=== PATIENT | male | born 1940 | race Caucasian/White ===

== ENCOUNTER 2019-02-18 10:41 | Outpatient (CLI) | payer MEDICARE, BC ==
[2019-02-18 11:15] LABS: CALCIUM, SERUM 8.8 mg/dL (8.5-10.1); CREATININE 1.2 mg/dL (0.6-1.3); POTASSIUM 4.2 mmol/L (3.5-5.1)
[2019-02-18] MEDS ORDERED: CT SWABBABLE VALVE TRANS SET 1 EA INFUS.SET MC ONE (12:00)
[2019-02-18] MEDS ORDERED: IOHEXOL-350 100 ML VIAL IV ONE (12:00)
[2019-02-18] MEDS ORDERED: IV NS 0.9% 250 ML IV ONE (12:01)
== END 2019-02-18 23:50 | disposition home or self-care (01) ==
LOC: CT 10:41
PROVIDERS: ATTEND Internal Medicine Interventional Cardiology
DX: M48.07 Spinal stenosis, lumbosacral region (principal); M51.36 Other intervertebral disc degeneration, lumbar region; M51.26 Other intervertebral disc displacement, lumbar region; M12.88 Other specific arthropathies, not elsewhere classified, other specified site; M46.06 Spinal enthesopathy, lumbar region; M25.78 Osteophyte, vertebrae; I70.0 Atherosclerosis of aorta; K46.9 Unspecified abdominal hernia without obstruction or gangrene; R07.9 Chest pain, unspecified
CPT/HCPCS: 36415; 72131; 75574; 80048; J7050; Q9967

== ENCOUNTER 2021-01-21 08:09 | Outpatient (CLI) | payer MEDICARE, BC ==
[~2021-01-21] VITALS: Ht 177.8 cm; Wt 117.9 kg
--- NOTE | 2021-01-21 09:15 | NUR ---
CTA: Patient signed consent for CTA, patient verbalizes understanding.
[2021-01-21] MEDS ORDERED: IOHEXOL-350 100 ML VIAL IV ONE (09:18)
[2021-01-21] MEDS ORDERED: IV NS 0.9% 250 ML IV ONE (09:18)
[2021-01-21] MEDS ORDERED: CT SWABBABLE VALVE TRANS SET 1 EA INFUS.SET MC ONE (09:18)
[2021-01-21] MEDS ORDERED: NITROGLYCERIN 0.4 MG/TAB BOTTLE ONE (09:18)
[2021-01-21 09:25] VITALS: BP 143/68
[2021-01-21] MEDS ORDERED: NITROGLYCERIN 0.4 MG/TAB BOTTLE SL ONE (09:30)
[2021-01-21] MEDS ORDERED: METOPROLOL TARTRATE INJ 5 MG/5 ML AMPUL IVP PRN (09:30)
--- NOTE | 2021-01-21 09:34 | NUR ---
Post CTA; patient able to tolerate the procedure, and no distress noted. IV line Removed and cover with dry dressing, educated patient regarding post CTA the possible side effect of nitro and contrast patient verbalizes understanding. Patient left the Hospital in stable condition.
== END 2021-01-21 23:59 | disposition home or self-care (01) ==
LOC: CT 08:09
PROVIDERS: ATTEND Internal Medicine Interventional Cardiology
DX: I25.10 Atherosclerotic heart disease of native coronary artery without angina pectoris (principal); M47.814 Spondylosis without myelopathy or radiculopathy, thoracic region
CPT/HCPCS: 75574; J7050; Q9967